=== PATIENT | male | born 1975 | race Caucasian/White ===

== ENCOUNTER 2020-02-09 19:16 | Emergency (ER) | payer OTHER ==
[~2020-02-09] VITALS: Ht 180.3 cm; Wt 95.3 kg
[2020-02-09 19:34] VITALS: Ht 180.3 cm; Wt 95.3 kg
[2020-02-09 19:47] VITALS: BP 179/108
== END 2020-02-09 19:47 | disposition home or self-care (01) ==
LOC: ED 19:16
DX: Z02.89 Encounter for other administrative examinations (principal)